=== PATIENT | male | born 1960 | race Caucasian/White ===

== ENCOUNTER 2016-12-23 20:20 | Inpatient (IN) | payer BC ==
[~2016-12-23] VITALS: Ht 185.4 cm; Wt 100.7 kg
--- NOTE | 2016-12-23 04:10 | NUR ---
PATIENT RESTING: Patient resting quietly. No acute distress noted. Vital signs within normal range. Addendum: 12/24/16 at 0421 by Nury Zurita RN WRONG ENTRY
[2016-12-23 20:25] VITALS: BP 140/79; PULSE 125; RESP 20; TEMP 100.4; O2SAT 94
--- NOTE | 2016-12-23 20:25 | NUR ---
Placed in room 3 . Placed on vehicle monitor technician, blood pressure machine and pulse oximeter. To gown for exam. Side rails up. Report given to Sandra DILLON.
[2016-12-23] MEDS ORDERED: IBUPROFEN 800 MG TABLET PO ONE (20:30)
[2016-12-23] MEDS ORDERED: NACL 0.9% 1,000 ML IV SCH (20:30)
--- NOTE | 2016-12-23 20:30 | NUR ---
Patient alert and oriented x 4. Came in the ER with with a complaint of having a hard time emptying bladder. Patient was not feeling well since yesterday and just slept. Patient began having elevated temperature of 103 degrees F at home around 1830 then went to the urgent care. MD at urgent sent patient here. Blood sugar 231 (Hx of DM). Temp at this time is 100.4. No acute distress or SOB noted. Denies nausea or vomiting. Will continue to monitor.
--- NOTE | 2016-12-23 20:32 | NUR ---
ER Dr. Aguirre at bedside examining patient.
--- NOTE | 2016-12-23 20:34 | NUR ---
# 20 gauge angiocath placed to right AC. Use of asceptic technique. Opsite placed over site. Blood return noted. Blood for lab drawn from site. Flushed with 10 cc of normal saline. No evidence of infiltration noted. Patient tolerated well.
[2016-12-23 20:53] LABS: HEMOGLOBIN 15.3 g/dL (14.0-18.0); MEAN CORPUSCULAR HEMOGLOBIN 30 pg (27-31); MEAN CORPUSCULAR HGB CONC 34 % (32-36); MEAN CORPUSCULAR VOLUME 90 fL (79.0-98.0); PLATELET COUNT (AUTO) 198 K/uL (130-430); RED BLOOD CELL COUNT(AUTO) 5.02 MIL/uL (4.2-6.2); RED CELL DISTRIBUTION WIDTH 12.8 % (9.0-15.0); WHITE BLOOD COUNT (AUTO) 28.3 K/uL (4.8-10.8)
[2016-12-23 21:03] LABS: CALCIUM 8.9 mg/dL (8.4-11.0); CREATININE 1.48 mg/dL (0.55-1.30); POTASSIUM 4.2 mmol/L (3.5-5.1)
[2016-12-23 21:12] LABS: TOTAL BILIRUBIN 0.8 mg/dL (0.0-1.0)
[2016-12-23 21:13] LABS: ALBUMIN 3.3 g/dL (3.4-4.8); TOTAL PROTEIN, SERUM 7.4 g/dL (6.4-8.3)
[2016-12-23] MEDS ORDERED: NACL 0.9% 1,000 ML IV ONE ×2 (21:15→22:15)
[2016-12-23 21:18] LABS: BILIRUBIN,URINE NEGATIVE (NEGATIVE); BLOOD, URINE 1+ (NEGATIVE); CLARITY/URINE SL CLOUDY (CLEAR); COLOR,URINE YELLOW (YELLOW); GLUCOSE,URINE 2+ (NEGATIVE); KETONES,URINE NEGATIVE (NEGATIVE); LEUKOCYTE ESTERASE ,URINE 1+ (NEGATIVE); NITRITE, URINE POSITIVE (NEGATIVE); PROTEIN URINE 1+ (NEGATIVE)
[2016-12-23 21:25] LABS: BACTERIA,URINE MANY /HPF (None Seen); MUCUS,URINE None Seen /LPF (None Seen); RBC,URINE NONE SEEN /HPF (0-3); WBC,URINE >100 /HPF (0-3)
[2016-12-23 21:33] LABS: ATYPICAL LYMPHOCYTES % 0 % (0-0); BAND % (MANUAL) 5 % (0-6); BASOPHILS % (MANUAL) 0 % (0-2); EOSINOPHILS % (MANUAL) 0 % (0-7); LYMPHOCYTES % (MANUAL) 7 % (20-46); MONOCYTES % (MANUAL) 10 % (0-11)
[2016-12-23] MEDS ORDERED: cefTRIAXone 1 GM IVPB PREMIX 50 ML IV ONE (22:15)
[2016-12-23] MEDS ORDERED: LIP40 PO (22:41)
[2016-12-23] MEDS ORDERED: GLU500 PO (22:41)
[2016-12-23] MEDS ORDERED: LOSA100T11 PO (22:41)
--- NOTE | 2016-12-23 23:17 | NUR ---
ADMISSION NOTE Received patient from ER via cora, received report from WILMA Flores. Patient admitted with diagnosis of Urosepsis. Patient oriented to hospital routine, call light, toileting and safety-patient verbalized understanding.
[2016-12-23 23:19] VITALS: BP 92/59; PULSE 88; RESP 20; TEMP 97; O2SAT 93
--- NOTE | 2016-12-23 23:20 | NUR ---
Patient will be admitted under the care of Dr. Bishop . Admitted to med-surg unit. Will go to room 107B. Summary report printed. Report given to WILMA Son.
--- NOTE | 2016-12-23 23:25 | NUR ---
ROUNDS PATIENT IN BED, AWAKE, ALERT, ORIENTED, DENIES ANY PAIN AND DISCOMFORT AT THIS TIME. ADMISSION ASSESSMENT DONE AND DOCUMENTED. SEE FLOWSHEET. ORIENTED PATIENT TO HIS ROOM, TV, PHONE AND CALL LIGHT. PLAN OF CARE DISCUSSED AND PATIENT VERBALIZED UNDERSTANDING. NEEDS ATTENDED TO. SAFETY AND FALL PRECAUTION MEASURES IN PLACED. CALL LIGHT PLACED WITHIN REACH.
[2016-12-24] MEDS ORDERED: PIPERACILLIN/TAZOBACTAM 3.375 GM/VIAL (ZOSYN) IV ONE (00:30)
[2016-12-24] MEDS: PIPERACILLIN/TAZO 3.375 GM in NS 50 ML IV SCH ×4 (00:37→17:15)
[2016-12-24] MEDS: NACL 0.9% 1,000 ML IV SCH ×2 (00:39→09:00)
--- NOTE | 2016-12-24 02:15 | NUR ---
PATIENT RESTING: Patient resting quietly. No acute distress noted. Vital signs within normal range.
[2016-12-24 03:39] VITALS: BP 126/61; PULSE 89; RESP 18; TEMP 97.6; O2SAT 96
--- NOTE | 2016-12-24 04:00 | NUR ---
NOTES PATIENT AWAKE, VITALS STABLE, LAB ORDER FOR INFLUENZA A&B ANTIGEN DONE AND SENT TO LAB. WILL CONTINUE TO MONITOR PATIENT.
[2016-12-24] MEDS: INSULIN REGULAR, HUMAN 100 UNITS/ML, 10 ML VIAL (novoLIN R) SUBCUT PRN ×4 (06:21→22:18)
--- NOTE | 2016-12-24 06:56 | NUR ---
CLOSING NOTES PATIENT STABLE, ALL NEEDS ATTENDED TO, ACCU CHECK DONE WITH BLOOD SUGAR OF 190 MG/DL. 2 UNITS REGULAR INSULIN GIVEN SQ PER SLIDING SCALE. CALL LIGHT PLACED WITH PATIENT.
--- NOTE | 2016-12-24 07:35 | NUR ---
rn notes: patient is aaox4. afebrile. vss stable. lungs bilaterally clear. abdomen soft and non distended. has iv access on the right forearm. with normal saline 100cc/hr infusing on well. bed in low position. call lights within reach. safety measures maintained. informed patient to call for assistance.
[2016-12-24 08:12] VITALS: BP 100/63; PULSE 83; RESP 16; TEMP 97.4; O2SAT 97
--- NOTE | 2016-12-24 09:53 | NUR ---
CALLED UROLOGY CONSULT TO DR CARCAMO, RE: URINARY RETENTION. SPOKE TO BENEDICTO AND LEFT GARY ON HIS CELL PHONE
[2016-12-24 10:00] VITALS: BP 100/68; PULSE 89; RESP 18; TEMP 97.4; O2SAT 97
[2016-12-24 10:25] LABS: HEMATOCRIT 38.1 % (36-54); HEMOGLOBIN 13.2 g/dL (14.0-18.0); MEAN CORPUSCULAR HEMOGLOBIN 31 pg (27-31); MEAN CORPUSCULAR HGB CONC 35 % (32-36); MEAN CORPUSCULAR VOLUME 90 fL (79.0-98.0); PLATELET COUNT (AUTO) 148 K/uL (130-430); RED BLOOD CELL COUNT(AUTO) 4.25 MIL/uL (4.2-6.2); RED CELL DISTRIBUTION WIDTH 12.9 % (9.0-15.0)
[2016-12-24 10:29] LABS: CREATININE 1.1 mg/dL (0.55-1.30); POTASSIUM 3.8 mmol/L (3.5-5.1)
--- NOTE | 2016-12-24 10:30 | NUR ---
iv access on the rt forearm was infiltrated. has difficult veins.
[2016-12-24 10:34] LABS: ALBUMIN 2.5 g/dL (3.4-4.8); TOTAL BILIRUBIN 0.4 mg/dL (0.0-1.0)
[2016-12-24 10:50] LABS: BAND % (MANUAL) 5 % (0-6); BASOPHILS % (MANUAL) 0 % (0-2); EOSINOPHILS % (MANUAL) 0 % (0-7); LYMPHOCYTES % (MANUAL) 3 % (20-46); MONOCYTES % (MANUAL) 7 % (0-11)
--- NOTE | 2016-12-24 11:11 | NUR ---
CALLED UROLOGY CONSULT TO DR. Carolina TAI, RE: URINARY RETENTION. SPOKE TO
--- NOTE | 2016-12-24 11:50 | NUR ---
Dr Crowe came and evaluate the patient. bladder scanner done. with urine residual 160 on the bladdder. informed of the gram negative rods on the blood culture.
[2016-12-24 12:03] VITALS: Ht 185.4 cm; Wt 100.7 kg
[2016-12-24 12:15] VITALS: BP 154/88; PULSE 102; RESP 17; TEMP 98.2; O2SAT 97
--- NOTE | 2016-12-24 12:20 | NUR ---
latest bs is 224mg/dl. coverage given at this time. no pain nor distress noted.
--- NOTE | 2016-12-24 12:40 | NUR ---
tries to insert iv access x 6. no veins available.
--- NOTE | 2016-12-24 13:30 | NUR ---
Dr Bishop ordered to have picc line insertion. consent signed.
--- NOTE | 2016-12-24 14:30 | NUR ---
picc line nurse Vaibhav came and able to have picc line on the left basilic area.
[2016-12-24 15:06] LABS: INR 1.2 (0.80-1.20)
--- NOTE | 2016-12-24 16:00 | NUR ---
offered urinal x 2.
[2016-12-24 16:07] VITALS: BP 139/76; PULSE 111; RESP 22; TEMP 98.9; O2SAT 97
[2016-12-24] MEDS: LEVOFLOXACIN 500 MG/D5W 100 ML IV SCH (17:10)
--- NOTE | 2016-12-24 17:36 | NUR ---
CALLED ATTENDING MD DR MAIN RE: SEVERE HEADACHE. SPOKE TO MARNIE
--- NOTE | 2016-12-24 18:00 | NUR ---
latest bs is 232 mg/dl. coverage given at this time.
--- NOTE | 2016-12-24 18:20 | NUR ---
Paged paged for Dr Bishop, dialed . s/w Alma, stated that Dr Sainz is on-call for Dr Bishop.
--- NOTE | 2016-12-24 18:30 | NUR ---
temperature is 101.5. ice packs given to the patiient to the head, neck and both axilla region and groin areas.
--- NOTE | 2016-12-24 18:40 | NUR ---
Dr abraham made ordered. lactic acid done. norco and tylenol for fever.
[2016-12-24] MEDS ORDERED: ACETAMINOPHEN 325 MG TABLET PO PRN (18:45)
[2016-12-24] MEDS ORDERED: HYDROcodone/ACETAMIN 5-325 MG TAB (NORCO/ VICODIN) PO PRN (18:45)
--- NOTE | 2016-12-24 19:00 | NUR ---
tylenol 2 tabs po given and norco i tablet given as ordered. made comfortable.
--- NOTE | 2016-12-24 19:15 | NUR ---
OPENING NOTES RECEIVED REPORT AT BEDSIDE FROM DAY SHIFT NURSE. PATIENT AGITATED AND PACING AROUND ROOM WITH JERKY MOVEMENTS. PATIENT SITTING ON BED. FALL PRECAUTIONS IN PLACE, CALL LIGHT WITHIN REACH. WILL CONTINUE TO MONITOR.
--- NOTE | 2016-12-24 19:49 | NUR ---
Paged paged for Dr Bishop, dialed . s/w Nhung, stated that Dr Sainz is on-call for Dr Bishop.
[2016-12-24] MEDS ORDERED: INSU10VI4 SUBCUT (19:53)
[2016-12-24 19:55] VITALS: BP 119/80; PULSE 98; RESP 20; TEMP 98.8; O2SAT 97
[2016-12-24] MEDS ORDERED: LORazepam 2 MG/ML VIAL IVP ONE (20:45)
--- NOTE | 2016-12-24 21:15 | NUR ---
ROUNDS PATIENT IS SLEEPING COMFORTABLY. VISIBLE RISE AND FALL OF CHEST NOTED. NO ACUTE SIGNS OR SYMPTOMS OF DISTRESS NOTED. IV FLUIDS RUNNING. ICE PACKS AT BEDSIDE, NO FEVER. AT BEDSIDE. URINAL AT BEDSIDE. BED IN LOWEST POSITION AND CALL LIGHT WITHIN REACH. WILL CONTINUE TO MONITOR.
[2016-12-24] MEDS: TEMAZEPAM 15 MG CAPSULE PO SCH (21:37)
--- NOTE | 2016-12-24 23:15 | NUR ---
ROUNDS PATIENT IS SLEEPING COMFORTABLY, VISIBLE RISE AND FALL OF CHEST NOTED. NO ACUTE SIGNS OR SYMPTOMS OF DISTRESS NOTED. IV FLUIDS RUNNING, NO FEVER, URINAL AT BEDSIDE. BED IN LOWEST POSITION AND CALL LIGHT WITHIN REACH. WILL CONTINUE TO MONITOR.
[2016-12-25 00:30] VITALS: BP 127/76; PULSE 85; RESP 16; TEMP 97.8; O2SAT 97
--- NOTE | 2016-12-25 00:33 | NUR ---
ROUNDS PATIENT AWAKE AND USING BATHROOM. NO SIGNS OR SYMPTOMS OF DISTRESS NOTED. WILL CONTINUE TO MONITOR.
[2016-12-25] MEDS: PIPERACILLIN/TAZO 3.375 GM in NS 50 ML IV SCH ×4 (00:39→17:15)
--- NOTE | 2016-12-25 02:30 | NUR ---
ROUNDS PATIENT IS SLEEPING WITH VISIBLE RISE AND FALL OF CHEST NOTED. NO ACUTE SIGNS OR SYMPTOMS OF DISTRESS NOTED. IV FLUIDS RUNNING, NO FEVER, URINAL AT BEDSIDE. BED IN LOWEST POSITION AND CALL LIGHT WITHIN REACH. WILL CONTINUE TO MONITOR.
[2016-12-25] MEDS: NACL 0.9% 1,000 ML IV SCH ×3 (04:11→15:20)
--- NOTE | 2016-12-25 04:14 | NUR ---
ROUNDS PATIENT SLEEPING COMFORTABLY. VISIBLE RISE AND FALL OF CHEST AND AUDIBLE SNORING. NO SIGNS OR SYMPTOMS OF DISTRESS NOTED. BED IN LOWEST POSITION, CALL LIGHT WITHIN REACH. WILL CONTINUE TO MONITOR.
[2016-12-25 04:19] VITALS: BP 130/81; PULSE 70; RESP 18; TEMP 98.9; O2SAT 97
--- NOTE | 2016-12-25 05:00 | NUR ---
Consult Called Reason for consultation: Sepsis Was consult called: Yes Person who was notified: Arpyl Consulting Physician: Annika Mc MD Unit Secretary Order by: Kenia Bishop MD
[2016-12-25] MEDS: INSULIN REGULAR, HUMAN 100 UNITS/ML, 10 ML VIAL (novoLIN R) SUBCUT PRN ×3 (06:11→22:01)
--- NOTE | 2016-12-25 06:30 | NUR ---
CLOSING NOTES WILL ENDORSE CARE TO DAY SHIFT NURSE. PATIENT IS SLEEPING COMFORTABLY. VISIBLE RISE AND FALL OF THE CHEST IS NOTED. NO SIGNS OR SYMPTOMS OF DISTRESS NOTED. FALL PRECAUTIONS IN PLACE.
--- NOTE | 2016-12-25 08:57 | NUR ---
Nutrition Update Stephen Scale 18 noted. Pt admitted for urosepsis. Diet: [facility] BMI: 29.3 kg/m2 RD to follow per nutrition care standards.
--- NOTE | 2016-12-25 09:17 | NUR ---
Rounds to patient. Sleeping at this time.
--- NOTE | 2016-12-25 10:48 | NUR ---
Patient rounds and housekeeping present. Patient right side lying and resting with television on.
--- NOTE | 2016-12-25 11:08 | NUR ---
Check of blood sugar for patient request refused at this time. Refuses vital signs. Notified will give antibiotics at 12 and 2pm. Verbalizes understanding.
--- NOTE | 2016-12-25 12:05 | NUR ---
IV antibiotic up at this time. Patient quietly left side lying.
[2016-12-25 12:25] VITALS: BP 141/88; PULSE 89; RESP 17; TEMP 98.6; O2SAT 94
[2016-12-25] MEDS: LEVOFLOXACIN 500 MG/D5W 100 ML IV SCH (13:53)
--- NOTE | 2016-12-25 13:54 | NUR ---
Rounds to put up new antibiotic. Patient up to restroom. IV maching placed back to battery as it was low.
--- NOTE | 2016-12-25 15:39 | NUR ---
Provided patient a new urinal. Patient IVF bag change. Given two glasses one with extra ice for a drink patient has at bedside.
[2016-12-25 16:00] VITALS: BP 139/82; PULSE 82; RESP 17; TEMP 98.4; O2SAT 96
--- NOTE | 2016-12-25 17:59 | NUR ---
IV antibiotics up for patient. Accucheck within 200's for patient current range. Urinal emptied for 1000mL.
[2016-12-25 20:00] VITALS: BP 141/91; PULSE 88; RESP 18; TEMP 98.7; O2SAT 97
[2016-12-25 20:30] VITALS: BP 141/91; PULSE 88; RESP 18; TEMP 98.7; O2SAT 97
[2016-12-25] MEDS: TEMAZEPAM 15 MG CAPSULE PO SCH (21:14)
--- NOTE | 2016-12-25 21:17 | NUR ---
Medications Requested sleeping medications. Restoril given as ordered.
--- NOTE | 2016-12-25 22:05 | NUR ---
blood sugar Fingerstick checked = 285 mg/dL. No s/s of hypo/hyperglycemia. 6 units regular insulin given as ordered for coverage.
--- NOTE | 2016-12-25 23:15 | NUR ---
Rounds Sleeping quietly, no apparent distress. Easily aroused. Call light within reach.
[2016-12-26 00:48] VITALS: BP 138/82; PULSE 86; RESP 20; TEMP 99.2; O2SAT 97
[2016-12-26] MEDS: PIPERACILLIN/TAZO 3.375 GM in NS 50 ML IV SCH ×5 (00:56→23:56)
[2016-12-26] MEDS: NACL 0.9% 1,000 ML IV SCH ×3 (00:56→21:46)
--- NOTE | 2016-12-26 03:13 | NUR ---
Rounds Sleeping quietly, no apparent distress. Easily aroused. No c/o pain or discomfort. Call light within reach.
[2016-12-26 05:48] VITALS: BP 132/68; PULSE 75; RESP 16; TEMP 99; O2SAT 96
[2016-12-26] MEDS: INSULIN REGULAR, HUMAN 100 UNITS/ML, 10 ML VIAL (novoLIN R) SUBCUT PRN ×4 (06:55→22:14)
--- NOTE | 2016-12-26 07:00 | NUR ---
Closing note Sleeping quietly, easily aroused. No c/o pain or discomfort. All needs attended to. Call light within reach. Endorsed care to WILMA Garza via SBAR method.
[2016-12-26 07:01] LABS: BASOPHILS % (AUTO) 0.4 % (0.0-2.0); EOSINOPHILS # (AUTO) 0.1 K/uL (0.0-0.4); EOSINOPHILS % (AUTO) 0.9 % (0.0-4.0); HEMATOCRIT 39.6 % (36-54); HEMOGLOBIN 13.4 g/dL (14.0-18.0); LYMPHOCYTES # (AUTO) 0.8 K/uL (1.0-5.5); LYMPHOCYTES % (AUTO) 7.6 % (20.5-51.5); MEAN CORPUSCULAR HEMOGLOBIN 30 pg (27-31); MEAN CORPUSCULAR HGB CONC 34 % (32-36); MEAN CORPUSCULAR VOLUME 88 fL (79.0-98.0); MONOCYTES # (AUTO) 0.9 K/uL (0.0-1.0); MONOCYTES % (AUTO) 9.4 % (1.7-9.3); NEUTROPHILS # (AUTO) 8.2 K/uL (1.8-7.7); NEUTROPHILS % (AUTO) 81.7 % (40.0-70.0); PLATELET COUNT (AUTO) 186 K/uL (130-430); RED BLOOD CELL COUNT(AUTO) 4.49 MIL/uL (4.2-6.2); RED CELL DISTRIBUTION WIDTH 13.1 % (9.0-15.0)
[2016-12-26 07:25] LABS: ALBUMIN 2.5 g/dL (3.4-4.8); CALCIUM 8.4 mg/dL (8.4-11.0); CREATININE 0.98 mg/dL (0.55-1.30); POTASSIUM 3.7 mmol/L (3.5-5.1); TOTAL BILIRUBIN 0.4 mg/dL (0.0-1.0); TOTAL PROTEIN, SERUM 6.3 g/dL (6.4-8.3)
[2016-12-26 08:00] VITALS: BP 139/88; PULSE 82; RESP 16; TEMP 97.6; O2SAT 95
--- NOTE | 2016-12-26 08:00 | NUR ---
NOTE PT RESTING IN BED. WILL NOT ANSWER QUESTIONS AT THIS TIME, JUST TURNS HIS HEAD AND GOES BACK TO SLEEP. NO SOB/RESP DISTRESS OR PAIN/DISCOMFORT NOTED AT THIS TIME. PICC IN LEFT UPPER ARM INTACT AND PATENT AT THIS TIME. CALL LIGHT WITHIN REACH. PT USES URINAL TO VOID AND STAFF EMPTIES IT FOR HIM AT THIS TIME.
--- NOTE | 2016-12-26 12:00 | NUR ---
NOTE PT HAS 3 FRIENDS AT BEDSIDE VISITING. PT AMBULATED TO RESTROOM TO VOID AND NO NEEDS NOTED. PT AMBULATED TO RESTROOM WITH STEADY GAIT. NO NEEDS NOTED AT THIS TIME. CALL LIGHT WITHIN REACH. IVF'S INFUSING WELL AT THIS TIME. NO NEEDS NOTED. CALL LIGHT WITHIN REACH.
[2016-12-26 12:17] VITALS: BP 138/82; PULSE 73; RESP 18; TEMP 98; O2SAT 96
[2016-12-26] MEDS: LEVOFLOXACIN 500 MG/D5W 100 ML IV SCH (15:20)
[2016-12-26 15:59] VITALS: BP 136/80; PULSE 76; RESP 18; TEMP 97.9; O2SAT 100
--- NOTE | 2016-12-26 16:00 | NUR ---
NOTE PT SITTING IN BS CHAIR EATING SANDWICH THAT HIS BROUGHT IN FOR HIM. PT DENIES ANY SOB/RESP DISTRESS OR PAIN/DISCOMFORT AT THIS TIME. NO NEEDS NOTED. PT STABLE AT THIS TIME. CALL LIGHT WITHIN REACH.
--- NOTE | 2016-12-26 18:15 | NUR ---
NOTE PT ATE HIS DINNER AND THEN FELL BACK TO SLEEP. NO SOB/RESP DISTRESS OR PAIN/DISCOMFORT NOTED AT THIS TIME. LEFT UPPER ARM PICC INTACT AND PATENT AT THIS TIME. NO NEEDS NOTED, PT WAS CHECKED ON Q1' AND PRN ALL SHIFT. PT WAS MAINTAINED WITH SAFETY PRECAUTIONS ALL SHIFT. CALL LIGHT WITHIN REACH.
[2016-12-26 19:30] VITALS: BP 132/83; PULSE 86; RESP 17; TEMP 97.7; O2SAT 95
--- NOTE | 2016-12-26 20:00 | NUR ---
Initial note A/O x 3, no SOB, no chest pain, denied pain. Patient was eating dinner with at this time. Skin warm to touch, PICC line at L upper arm, patent, good blood return, no s/s of infection or infiltration. Continued NS @ 100 ml/hr. Clear lung sounds and active bowel sounds. No edema noted. +2 radial and pedal pulses, BRP. Patient stated some dysuria. SN instructed patient to increase fluids intake. Call light within reach, will continue to monitor patient.
[2016-12-26] MEDS: TEMAZEPAM 15 MG CAPSULE PO SCH (21:45)
--- NOTE | 2016-12-26 22:00 | NUR ---
Rounds Sleeping/resting. No SOB, no chest pain, denied pain. Blood sugar 330, 8 units Novolin R given. Patient tolerated well. No s/s of hyper or hypoglycemia. Continued NS @ 100 ml/hr via PICC line. Patient went back to sleep. Call light within reach, will continue to monitor patient.
[2016-12-27 00:07] VITALS: BP 138/82; PULSE 78; RESP 20; TEMP 98.9; O2SAT 97
--- NOTE | 2016-12-27 00:15 | NUR ---
Rounds Sleeping. No SOB, no chest pain, no grimacing. No s/s of hyper or hypoglycemia. Continued NS @ 100 ml/hr via PICC line. Zosyn IV given. Call light within reach, will continue to monitor patient.
--- NOTE | 2016-12-27 02:30 | NUR ---
Rounds Sleeping. No SOB, no chest pain, no grimacing. No s/s of hyper or hypoglycemia. Continued NS @ 100 ml/hr via PICC line. Call light within reach, will continue to monitor patient.
[2016-12-27 04:21] VITALS: BP 138/62; PULSE 90; RESP 20; TEMP 98.6; O2SAT 98
[2016-12-27] MEDS: PIPERACILLIN/TAZO 3.375 GM in NS 50 ML IV SCH (05:02)
[2016-12-27] MEDS: NACL 0.9% 1,000 ML IV SCH (06:05)
[2016-12-27] MEDS: INSULIN REGULAR, HUMAN 100 UNITS/ML, 10 ML VIAL (novoLIN R) SUBCUT PRN (06:34)
--- NOTE | 2016-12-27 06:44 | NUR ---
Closing note Resting in bed. No SOB, no chest pain, denied pain. Blood sugar 295, 6 units of Novolin R given, no s/s of hyper or hypoglycemia. Continued NS @ 100 ml/hr via PICC line. Call light within reach, will give report to incoming nurse.
--- NOTE | 2016-12-27 07:20 | NUR ---
am rounds: patient on the bed. awake,alert and oriented x4. ivf on going at left upper arm piccline.no distress. report given by gisela merino nurse at bedside. continue to monitor.
[2016-12-27 08:55] VITALS: BP 149/98; PULSE 66; RESP 19; TEMP 97.2; O2SAT 96
--- NOTE | 2016-12-27 09:05 | NUR ---
MD ROUNDS: PATIENT SEEN BY DR MAIN AND WITH ORDERS DC HOME AND F/U WITH UROLOGIST IN 1 WEEK.PATIENT STATED HE ALREADY HAD A APPT WITH DR TAI,S OFFICE.
[2016-12-27 10:42] VITALS: BP 140/90; PULSE 64; RESP 19; TEMP 97.9; O2SAT 97
[2016-12-27 11:16] VITALS: BP 140/90; PULSE 64; RESP 19; TEMP 97.9; O2SAT 97
--- NOTE | 2016-12-27 11:35 | NUR ---
DC NOTES; TRANSITIONAL CARE DOCUMENTS AND PRESCRIPTIONS GIVEN TO PATIENT. PICCLINE REMOVED,DRY DRESSING APPLIED,NO ACTIVE BLEEDING NOTED.FAXED PRESCRIPTIONS TO [facility] AT [address],CONFIRMED RECEIVED ATTACHED TO CHART.INSTRUCTED PATIENT TO WIND OPERATIONS SUPERVISOR THE MEDS C/O [facility] PER REQUEST AND PATIENT VERBALIZED UNDERSTANDING. WALK PT TO [facility]OM[facility] HOME BY HIS SUDHAKAR IN STABLE CONDITION.
--- NOTE | 2016-12-27 12:29 | NUR ---
INDIRECT SALES REPRESENTATIVE called and spoke with HCP Drivability Technician, Karina ([phone]), to inform her regarding pt's discharge order.
== END 2016-12-27 11:35 | disposition home or self-care (01) | DRG 871 ==
LOC: SED 20:20 → SMU 22:57
PROVIDERS: ADMIT Internal Medicine Hospice and Palliative Medicine; ATTEND Internal Medicine Hospice and Palliative Medicine
PROC: 02HV33Z Insertion of Infusion Device into Superior Vena Cava, Percutaneous Approach (ICD-10-PCS; principal; 2016-12-24)
PROC: B548ZZA Ultrasonography of Superior Vena Cava, Guidance (ICD-10-PCS; 2016-12-24)
DX: A41.51 Sepsis due to Escherichia coli [E. coli] (principal); N17.0 Acute kidney failure with tubular necrosis; N10 Acute pyelonephritis; E44.1 Mild protein-calorie malnutrition; I10 Essential (primary) hypertension; E11.9 Type 2 diabetes mellitus without complications; B96.20 Unspecified Escherichia coli [E. coli] as the cause of diseases classified elsewhere; N40.0 Benign prostatic hyperplasia without lower urinary tract symptoms; Z79.899 Other long term (current) drug therapy; Z68.29 Body mass index [BMI] 29.0-29.9, adult
CPT/HCPCS: 36415; 71010; 76770; 80053; 81000-TC; 82962; 83605; 84484; 85007; 85025; 85027; 85610-TC; 85730-TC; 86710; 87040-TC; 87086; 87186-TC; 93005; 99285; C1751; J0696; J1815; J1956; J2060; J2543; J7030

== ENCOUNTER 2019-09-11 15:51 | Inpatient (IN) | payer BC ==
[~2019-09-11] VITALS: Ht 188 cm; Wt 103.2 kg
[2019-09-11] VITALS (8 sets, daily range): BP systolic 124–154
[~2019-09-11 15:51] MED LIST: GLU500 PO; INSU10VI4 SUBCUT; LIP40 PO; LOSA100T3 PO
--- NOTE | 2019-09-11 15:53 | NUR ---
Patient to ER bed 08 to gown for evaluation. Side rails up.
--- NOTE | 2019-09-11 16:00 | NUR ---
Patient brought in ambulatory from home complaining of shortness of breath intermittently x 7 months with worsening bilateral LE edema x 3 days. Patient is pacing room and agitated at this time. Denies any pain. Daugther at bedside. Patient able to speak full sentences. No other complaints/injuries per patient or as noted. will continue to monitor.
--- NOTE | 2019-09-11 16:13 | NUR ---
ER Dr. Chang at bedside examining patient.
--- NOTE | 2019-09-11 16:20 | NUR ---
# 18 gauge angiocath placed to LAC. Use of asceptic technique. Opsite placed over site. Blood return noted. Blood and blood cultures for lab drawn from site. Flushed with 10 cc of normal saline. No evidence of infiltration noted. Patient tolerated well.
[2019-09-11 16:45] LABS: BASOPHILS # (AUTO) 0.1 K/uL (0.0-0.2); BASOPHILS % (AUTO) 1.1 % (0.0-2.0); EOSINOPHILS # (AUTO) 0.4 K/uL (0.0-0.4); EOSINOPHILS % (AUTO) 4.1 % (0.0-4.0); HEMATOCRIT 45.5 % (36-54); HEMOGLOBIN 15.1 g/dL (14.0-18.0); LYMPHOCYTES # (AUTO) 1.5 K/uL (1.0-5.5); LYMPHOCYTES % (AUTO) 16.4 % (20.5-51.5); MEAN CORPUSCULAR HEMOGLOBIN 30 pg (27-31); MEAN CORPUSCULAR HGB CONC 33 % (32-36); MEAN CORPUSCULAR VOLUME 91 fL (79.0-98.0); MONOCYTES # (AUTO) 1.1 K/uL (0.0-1.0); MONOCYTES % (AUTO) 11.6 % (1.7-9.3); NEUTROPHILS # (AUTO) 6.2 K/uL (1.8-7.7); NEUTROPHILS % (AUTO) 66.8 % (40.0-70.0); PLATELET COUNT (AUTO) 277 K/uL (130-430); RED BLOOD CELL COUNT(AUTO) 5.02 MIL/uL (4.2-6.2); RED CELL DISTRIBUTION WIDTH 13.6 % (9.0-15.0); WHITE BLOOD COUNT (AUTO) 9.3 K/uL (4.8-10.8)
[2019-09-11 17:01] LABS: CREATININE 1.44 mg/dL (0.55-1.30); POTASSIUM 4.4 mmol/L (3.5-5.1)
[2019-09-11 17:07] LABS: ALBUMIN 3.3 g/dL (3.4-4.8); TOTAL BILIRUBIN 0.7 mg/dL (0.0-1.0)
--- NOTE | 2019-09-11 17:08 | NUR ---
Patient resting in [facility]. Lab results pending. Chest rise and fall noted. Will continue to monitor.
--- NOTE | 2019-09-11 17:32 | NUR ---
Patient's code status is full code paperwork completed and placed in chart.
--- NOTE | 2019-09-11 18:09 | NUR ---
Patient will be admitted to care of Dr. Bishop. Admitted to ICU unit. Will go to room 4. Belongings list completed. Complete and up to date summary report printed. SBAR report to be given at bedside with opportunity for questions.
[2019-09-11] MEDS ORDERED: *HEPARIN PER PHARMACY XX ONE (18:15)
[2019-09-11] MEDS ORDERED: METF1000 PO (18:20)
[2019-09-11] MEDS ORDERED: HYDR25TA4 PO (18:20)
[2019-09-11] MEDS ORDERED: IBUP-1969 PO (18:20)
[2019-09-11] MEDS ORDERED: AMOX500C2 PO (18:20)
--- NOTE | 2019-09-11 18:21 | NUR ---
Medication reconciliation completed with information provided by Patient's medication bottles. Any prior medication reconciliation on file was reviewed and corrected.
[2019-09-11 18:45] LABS: INR 1.1 (0.80-1.20); PROTHROMBIN TIME 10.9 SECS (9.5-12.5)
--- NOTE | 2019-09-11 18:48 | NUR ---
ICU Opening Note Received bedside report from TRUCK BODY BUILDER APPRENTICE for continuation of care. Received patient lethargic in bed, arousable to voice, able to speak full sentences, and follows commands. Patient denies any SOB or pain. Patient placed on continuous rn house supervisor. IV site LAC #18 patent, no signs of infiltration. No signs or symptoms of acute distress noted. Bed locked in lowest position, bed alarm on, and call light within reach. Fall and safety precautions in place.
--- NOTE | 2019-09-11 19:25 | NUR ---
Endorsement Endorsed bedside report to oncoming RN using SBAR approach for continuation of care.
--- NOTE | 2019-09-11 19:32 | NUR ---
Opening Note Pt in bed, AAO, but groggy. Pt at bedside, says Pt is just tired, and has had a long couple days. 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 Pt ST on the monitor, on RA. No s/s of distress noted. Pt has LAC 18g SL. Site is C/D/I, no s/s of infiltration noted. Bed locked in lowest position, safety precautions in place, and call light in reach. Will continue to monitor.
--- NOTE | 2019-09-11 19:45 | NUR ---
Spoke to Lux from radiology, Pt to be brought down for VQ scan around 2100.
[2019-09-11] MEDS ORDERED: HEPARIN SODIUM,PORCINE 5000 UNITS/ML VIAL IVP ONE (19:51)
[2019-09-11] MEDS ORDERED: HEPARIN 25,000 UNITS in 250 ML PREMIX IV PRN (20:00)
--- NOTE | 2019-09-11 20:46 | NUR ---
VQ Scan Pt in radiology dept, for VQ scan. RN accompanied. Pt hooked up to tele monitor. No s/s of distress noted. Will continue to monitor.
[2019-09-11] MEDS ORDERED: FUROSEMIDE 20 MG/2 ML VIAL IVP SCH (21:00)
--- NOTE | 2019-09-11 21:21 | NUR ---
Pt in process of having VQ scan. Pt tolerating well. VSS. NO distress noted. Will continue to monitor.
--- NOTE | 2019-09-11 21:35 | NUR ---
Pt back to ICU from Radiology. Tolerated procedure well. Hooked back up to monitor. VSS. Will continue to monitor. present at bedside.
--- NOTE | 2019-09-11 22:56 | NUR ---
PAGED-DR. LORA DIRECTOR OF PROCUREMENT [phone] Spoke with Chrissy
--- NOTE | 2019-09-11 23:05 | NUR ---
MD Called Spoke with Dr. Sandoval regarding Pt status and resulted V/Q scan. New orders received. Will carry out as ordered.
[2019-09-11] MEDS ORDERED: ZOLPIDEM TARTRATE 5 MG TABLET PO ONE (23:15)
--- NOTE | 2019-09-11 23:35 | NUR ---
Dr. Sandoval at bedside examining Pt.
[2019-09-11] MEDS ORDERED: D5W 1,000 ML IV PRN (23:38)
[2019-09-11] MEDS ORDERED: ACETAMINOPHEN 650 MG/20.3 ML UDC PO PRN (23:45)
[2019-09-11] MEDS ORDERED: GLUCOSE 15 GM GEL (in 37.5 GM TUBE) PO PRN (23:45)
[2019-09-11] MEDS ORDERED: DEXTROSE 50% JECT 50 ML DISP.SYRIN IVP PRN (23:45)
--- NOTE | 2019-09-12 00:40 | NUR ---
Transfer Pt transferred to room Telemetry 111B via wheelchair. Pt tolerated well, no s/s of distress noted. Belongings sent with Pt. Report given to admission nurse at bedside via SBAR approach.
[2019-09-12] MEDS ORDERED: HEPARIN SODIUM,PORCINE 2000 UNITS/0.4 ML BOLUS IVP PRN (01:00)
[2019-09-12] MEDS ORDERED: ENOXAPARIN SODIUM 120 MG/0.8 ML SYRINGE SUBCUT SCH (01:00)
[2019-09-12] MEDS ORDERED: HEPARIN SODIUM,PORCINE 3000 UNITS/0.6 ML BOLUS IVP PRN (01:00)
[2019-09-12 01:15] VITALS: BP_SYST 113
--- NOTE | 2019-09-12 01:15 | NUR ---
ASSUMED CARE FROM ADMITTING NURSE GARY DILLON. TRANSFERRED FROM ICU VIA BED AND PLACED IN ROOM 111-B AT 0040. RECEIVED ALERT,ORIENTED. AFEBRILE, NOT IN ACUTE DISTRESS. NO PAIN NOTED BUT COMPLAINED OF INABILITY TO SLEEP AND REQUESTED FOR SLEEP MEDICATION. BILATERAL LEG NOTED TO HAVE +2 EDEMA. SAO2=99% ON ROOM AIR. SR/ST AT 90'S TO LOW 100'S ON THE MONITOR. VS STABLE, WILL CONTINUE TO MONITOR. NEEDS ATTENDED.
[2019-09-12] MEDS: ZOLPIDEM TARTRATE 5 MG TABLET PO PRN ×2 (01:29→23:00)
--- NOTE | 2019-09-12 01:31 | NUR ---
AMBIEN 5 MG PO FOR SLEEP AND LOVENOX 110 MG SQ X 1 GIVEN ORDERED. PT. ADVISED TO GET BACK TO BED.
--- NOTE | 2019-09-12 03:30 | NUR ---
PT. NOTED TO BE SLEEPING ON THE CHAIR. PT.HELPED BACK TO BED, TURNED BED ALARM ON AND PUT 2 SIDE RAILS UP.
--- NOTE | 2019-09-12 03:59 | NUR ---
CONSULT PAGED-CARDIOLOGY MORNING CONSULT TO DR. SWIFT FOR CHF [phone] SPOKE WITH PRIYANKA
--- NOTE | 2019-09-12 04:50 | NUR ---
SLEEPING SOUNDLY, NOT IN ACUTE DISTRESS. REMAINS STABLE AND PAIN FREE. WILL CONTINUE TO MONITOR.
--- NOTE | 2019-09-12 06:40 | NUR ---
FINGERSTICK BLOOD SUGAR OGCLH=[id number]. NO INSULIN COVERAGE NEEDED.
[2019-09-12 07:11] LABS: BASOPHILS # (AUTO) 0.1 K/uL (0.0-0.2); BASOPHILS % (AUTO) 1.2 % (0.0-2.0); EOSINOPHILS # (AUTO) 0.4 K/uL (0.0-0.4); EOSINOPHILS % (AUTO) 5.7 % (0.0-4.0); HEMATOCRIT 42.2 % (36-54); HEMOGLOBIN 14.1 g/dL (14.0-18.0); LYMPHOCYTES # (AUTO) 1.5 K/uL (1.0-5.5); MEAN CORPUSCULAR HEMOGLOBIN 30 pg (27-31); MEAN CORPUSCULAR HGB CONC 34 % (32-36); MEAN CORPUSCULAR VOLUME 91 fL (79.0-98.0); MONOCYTES # (AUTO) 0.9 K/uL (0.0-1.0); MONOCYTES % (AUTO) 12.5 % (1.7-9.3); NEUTROPHILS # (AUTO) 4.4 K/uL (1.8-7.7); NEUTROPHILS % (AUTO) 59.6 % (40.0-70.0); PLATELET COUNT (AUTO) 248 K/uL (130-430); RED BLOOD CELL COUNT(AUTO) 4.66 MIL/uL (4.2-6.2); RED CELL DISTRIBUTION WIDTH 13.3 % (9.0-15.0); WHITE BLOOD COUNT (AUTO) 7.3 K/uL (4.8-10.8)
--- NOTE | 2019-09-12 07:40 | NUR ---
ENDORSED CARE NOAM RN STABLE.
[2019-09-12 07:46] LABS: CALCIUM 7.7 mg/dL (8.4-11.0); CREATININE 0.98 mg/dL (0.55-1.30); POTASSIUM 3.6 mmol/L (3.5-5.1); THYROID STIMULATING HORMONE 1.25 uIu/mL (0.36-3.74); TOTAL BILIRUBIN 0.7 mg/dL (0.0-1.0)
--- NOTE | 2019-09-12 08:43 | NUR ---
Dr. Dallas rounds assessed patient, new orders noted, will carry out.
[2019-09-12 08:53] VITALS: BP_SYST 120
--- NOTE | 2019-09-12 08:54 | NUR ---
Opening note patient resting in chair at bedside, his is at bedside, abdominal ultrasound complete, assessment complete, educated the patient buckle and button maker light system and plan of care, including strict I&O's and fluid restriction, patient verbalized understanding, no other needs at this time, bed in lowest position, two side rails up, call light within reach, fall and aspiration precautions in place.
[2019-09-12] MEDS ORDERED: FUROSEMIDE 20 MG/2 ML VIAL IVP ONE (09:00)
[2019-09-12] MEDS: LOSARTAN POTASSIUM 50 MG TABLET (COZAAR) PO SCH ×2 (09:19→21:49)
--- NOTE | 2019-09-12 09:26 | NUR ---
Medication patient resting in chair at bedside, educated on medications uses and potential side effects, he verbalized understanding and tolerated well, IV line is patent and infusing well, continuing to monitor, bed in lowest position, two side rails up, call light within reach, fall and aspiration precautions in place.
[2019-09-12] MEDS ORDERED: CARVEDILOL 3.125 MG TABLET (COREG) PO ONE (09:45)
[2019-09-12] MEDS: ENOXAPARIN SODIUM 100 MG/ML SYRINGE SQ SCH ×2 (10:00→21:51)
[2019-09-12 11:23] VITALS: BP_SYST 133
[2019-09-12] MEDS: LORazepam 1 MG TABLET PO PRN (11:28)
[2019-09-12] MEDS: INSULIN REGULAR, HUMAN 100 UNITS/ML, 10 ML VIAL (humuLIN R) SUBCUT PRN ×2 (11:34→22:09)
--- NOTE | 2019-09-12 11:37 | NUR ---
RN rounds/Medication patient resting in chair at bedside, educated on PRN and new medications uses and potential side effects, he verbalized understanding and tolerated well, blood glucose checked and insulin coverage provided per MD orders, no other needs at this time, bed in lowest position, two side rails up, call light within reach, fall and aspiration precautions in place.
[2019-09-12 12:15] LABS: BARBITURATE, URINE NEGATIVE (NEG <=200); BENZODIAZEPINE, URINE NEGATIVE (NEG <=150); CANNABINOID, URINE NEGATIVE (NEG <=50); COCAINE, URINE NEGATIVE (NEG <=150); METHAMPHETAMINES SCREEN,URINE NEGATIVE (NEG <=500); OPIATE, URINE NEGATIVE (NEG <=100); PHENCYCLIDINE SCREEN,URINE NEGATIVE (NEG <=25); UR TRICYCLIC ANTIDEPRESSANTS NEGATIVE (NEG <=300); URINE AMPHETAMINE NEGATIVE (NEG <=500); URINE METHADONE NEGATIVE (NEG <=200); URINE OXYCODONE SCREEN NEGATIVE (NEG <=100); URINE PROPOXYPHENE SCREEN NEGATIVE (NEG <=300)
--- NOTE | 2019-09-12 13:26 | NUR ---
RN rounds patient resting in recliner chair, eyes closed, breathing is even and unlabored, no signs of distress, his family is at bedside, continuing to monitor, his family is at bedside, call light within reach of patient, bed in lowest position, fall and aspiration precautions in place.
--- NOTE | 2019-09-12 15:36 | NUR ---
RN rounds patient resting in recliner chair, eyes closed, breathing is even and unlabored, no signs of distress, his is at bedside, continuing to monitor, bed in lowest position, call light within patient reach, fall and aspiration precautions in place.
--- NOTE | 2019-09-12 17:15 | NUR ---
RN rounds/blood glucose patient resting in recliner chair, eyes closed, breathing is even and unlabored, no signs of distress, easy to wake, blood glucose checked, no insulin coverage per MD orders, continuing to monitor, call light within reach, fall and aspiration precautions in place.
--- NOTE | 2019-09-12 18:31 | NUR ---
Closing note patient resting in recliner chair, no signs of distress, all needs met, will endorse report to NOC shift nurse, call light within patient reach, fall and aspiration precautions in place.
[2019-09-12 19:00] VITALS: BP_SYST 113
--- NOTE | 2019-09-12 19:15 | NUR ---
change of shift.pt.presents quiescent affect;calm. @bedside.pt.presents chf hx;pt.to be weighed w/in the shift.pt.presents fluids restriction;1500ml/24hrs.pt.presents iv access:lt.antecubital;iv lock.pt.capable to ambulate w/out assistance.pt.to receive the administration;lasix;ivp;to monitor pt.apprised to urinate w/in the urinal;w/in the restroom:per the pt's requests.call light/telephone w/in the reach of the pt.
[2019-09-12 20:00] VITALS: BP_SYST 113
--- NOTE | 2019-09-12 20:00 | NUR ---
pt.assessed.v/s assessed;values w/in normal limits.no c/o pain,nausea.@bedside.pt.in conversation w/.i have apprised the pt.that i may provide snacks/beverages w/in the shift.pt.had requested snacks.i have provided the snacks.general status stable.respiratory status stable;unlabored.pt.capable to ambulate w/out assistance.call light/telephone w/in reach of the pt.
--- NOTE | 2019-09-12 20:30 | NUR ---
i have assessed the blood glucose;value;203mg/dl.iu have apprised the pt.of the blood glucose value.
--- NOTE | 2019-09-12 21:00 | NUR ---
2100p medications administered.the lasix;40mg ivp administered;pt.apprised that he may produce copious amounts of urine. the urinal x2 placed w/in restroom per the pt's requests;accommodate;facilitate location of the urinal. Addendum: 09/13/19 at 0427 by Js Aadn RN i have administered insulin;regular;4-units.
[2019-09-12] MEDS: FUROSEMIDE 20 MG/2 ML VIAL IVP SCH (21:48)
[2019-09-12] MEDS: CARVEDILOL 3.125 MG TABLET (COREG) PO SCH (21:49)
--- NOTE | 2019-09-12 22:00 | NUR ---
pt.assessed.pt.presents quiescent affect;calm,somnolent.pt.resting upon the chair;recliner.general status stable.respiratory status stable;unlabored.i have attended to the urinal;measured/cleaned.placed w/in the restroom.pt.capable to reposition self.call light/telephone w/in the reach of the pt.
--- NOTE | 2019-09-12 23:00 | NUR ---
pt.had requested medication;sleep.i have administered ambien;5mg po.i have attended to the urinal:measured/cleaned placed w/in the restroom.
[2019-09-13] VITALS: BP_SYST 115
--- NOTE | 2019-09-13 | NUR ---
pt.assessed.v/s assessed;values w/in normal limits.no c/o pain,nausea.no requests posited@this hour.i have attended to the urinal;measured/cleaned.placed w/in the restroom.general status stable.respiratory status stable;unlabored.pt.capable to reposition self.call light/telephone w/in the reach of the pt.
--- NOTE | 2019-09-13 01:00 | NUR ---
pt.assessed.i have attended to the urinal:measured/cleaned.urinal placed w/in the restroom.pt.presents quiescent affect;calm, somnolent.
--- NOTE | 2019-09-13 02:00 | NUR ---
pt.assessed.pt.presents quiescent affect;calm,somnolent.pt.resting upon the chair/recliner.i have attended to the urinal; measured/cleaned. placed w/in the restroom.general status stable.respiratory status stable;unlabored.pt.capable to reposition self.call light/ telephone w/in the reach of the pt.
--- NOTE | 2019-09-13 03:00 | NUR ---
i have attended to the urinal;measured/cleaned placed w/in the restroom.ptrst quiescent affect;calm,somnolent.
--- NOTE | 2019-09-13 04:00 | NUR ---
pt.assessed.pt.presents affect;calm,somnolent.pt.resting upon the chair;recliner.general status stable.respiratory status stable;unlabored. i have inspected then urinals;clean.w/in the restroom.pt.capable to reposition self.call light/telephone w/in the reach of the pt.
--- NOTE | 2019-09-13 06:30 | NUR ---
pt.assessed.pt.presents quiescent affect;calm,somnolent.i have weighed the pt;2/t chf hx;lasix administration. general status stable.respiratory status stable;unlabored.pt.capable to reposition self.i have assessed the blood glucose;value:136mg/dl. i have apprised the pt.of the value.no c/o pain,nausea.i have inspected the urinal x2 clean.call light/telephone w/in reach of the pt.
--- NOTE | 2019-09-13 07:15 | NUR ---
OPENING NOTE: Received SBAR report and plan of care from green plumber RN
[2019-09-13 08:00] VITALS: BP_SYST 120
--- NOTE | 2019-09-13 09:00 | NUR ---
RN ROUNDS: Patient awake, AOx4, verbal and ambulatory. is at bedside. Patient denies chest pain. Patient denies SOB, breathing is even and unlabored. No signs of distress noted.
[2019-09-13] MEDS: FUROSEMIDE 20 MG/2 ML VIAL IVP SCH ×2 (09:03→21:42)
[2019-09-13] MEDS: LOSARTAN POTASSIUM 50 MG TABLET (COZAAR) PO SCH ×2 (09:03→21:00)
[2019-09-13] MEDS: CARVEDILOL 3.125 MG TABLET (COREG) PO SCH ×2 (09:04→21:00)
[2019-09-13] MEDS: ENOXAPARIN SODIUM 100 MG/ML SYRINGE SQ SCH ×2 (09:06→21:50)
--- NOTE | 2019-09-13 11:00 | NUR ---
RN ROUNDS: Patient remains AOx4 with no signs of distress noted. Patient is playing cards with at bedside.
[2019-09-13 11:31] VITALS: BP_SYST 124
[2019-09-13 12:21] VITALS: BP_SYST 99
[2019-09-13] MEDS: INSULIN REGULAR, HUMAN 100 UNITS/ML, 10 ML VIAL (humuLIN R) SUBCUT PRN (12:23)
--- NOTE | 2019-09-13 13:00 | NUR ---
RN ROUNDS: Patient resting in chair next to bed. Lots of family in room visiting. Patient is chatting and showing no signs of distress or discomfort.
--- NOTE | 2019-09-13 15:00 | NUR ---
RN ROUNDS: Patient walking laps around nursing station, gait is strong and steady. Patient has lots of family in room visiting. Patient denies chest pain, denies SOB.
[2019-09-13 15:54] VITALS: BP_SYST 118
--- NOTE | 2019-09-13 17:00 | NUR ---
RN ROUNDS: Patient resting in chair at bedside with family visiting. Patient walks frequently making laps around nursing station, gait is strong and steady.
--- NOTE | 2019-09-13 19:20 | NUR ---
CLOSING NOTE: Bedside SBAR report given and plan of care endorsed to awake overnight counselor RN
--- NOTE | 2019-09-13 19:35 | NUR ---
Opening note Patient is awake, AO x4, he returned from a walk in the hallway; he is sittng on recliner at bedside. Presently no SOB or s/sx of distress. IV to LAC is SL. Updated board and reviewed plan of care. He asked if he can shower, I informed I would have to page the doctor for an order.
[2019-09-13 20:00] VITALS: BP_SYST 99
--- NOTE | 2019-09-13 20:50 | NUR ---
Dr. Thomas s/w Dr. Thomas and she said ok for patient to shower.
--- NOTE | 2019-09-13 21:30 | NUR ---
Shower Patient assisted to shower. He denied dizziness or weakness and has steadyl gait. IV site was secured and covered with plastic wrap and tape. I stood outside in hallway while patient showered. Upon shower completion he returned to the room.
--- NOTE | 2019-09-13 21:50 | NUR ---
Medications Patient was administered due medication Lasix, and held blood pressure medication Coreg and Losartan; B/P 107/77. Fingerstick blood glucose was done w/ result of 111 mg/dL; no coverage is due. Presently he is in no distress and is sitting in chair playing a board game with . Will continue to monitor.
[2019-09-13] MEDS: ZOLPIDEM TARTRATE 5 MG TABLET PO PRN (22:42)
--- NOTE | 2019-09-13 22:48 | NUR ---
Ambien Patient requesting sleeping pill; administered Ambien as ordered. Patient has been ambulating to restroom and voiding in urinal. He was advised to stay in bed and use urinal at bedside; he agreed. Provided urinal and placed in flowers on bed rail.
[2019-09-14 00:06] VITALS: BP_SYST 118
--- NOTE | 2019-09-14 00:40 | NUR ---
Awake / v/s Patient awake for void, VSS. Patient was going to walk in hallway and I reminded him it is not safe, for he took ambien. He went back to his room and chose to rest on recliner. Will continue to monitor.
--- NOTE | 2019-09-14 02:25 | NUR ---
Rounds Patient resting in bed, w/eyes closed. Nonlabored breathing, no s/sx of distress. Emptied urinal, call light w/in reach.
--- NOTE | 2019-09-14 04:15 | NUR ---
Rounds Patient resting, eyes closed, nonlabored breathing. Call light w/in reach.
--- NOTE | 2019-09-14 06:50 | NUR ---
CLOSING NOTE Patient is resting, no s/sx of distress. Fingerstick blood glucose test done w/ result of 115 mg/dL; no coverage due. IV is SL to LAC. Needs met throughout shift. Safety precautions in place and call light w/in reach. Will endorse care to incoming day shift nurse.
--- NOTE | 2019-09-14 07:30 | NUR ---
Opening note patient resting in bed at this time, A/ox4, no complaints of pain. IV patent, intact. No infiltration noted. On safety and aspiration precautions, HOB kept elevated, 3 side rails up, call light within reach. bed alarm on. Patient in stable condition. Will continue to monitor.
[2019-09-14 08:00] VITALS: BP_SYST 102
[2019-09-14] MEDS: CARVEDILOL 3.125 MG TABLET (COREG) PO SCH (09:00)
[2019-09-14] MEDS: LOSARTAN POTASSIUM 50 MG TABLET (COZAAR) PO SCH (09:00)
--- NOTE | 2019-09-14 09:00 | NUR ---
BP low/ BP medications BP medications held, lasix given as ordered. Dr. juanita baca MD to see patient. No other needs at this time.
[2019-09-14] MEDS: FUROSEMIDE 20 MG/2 ML VIAL IVP SCH (09:27)
[2019-09-14] MEDS: ENOXAPARIN SODIUM 100 MG/ML SYRINGE SQ SCH (09:30)
[2019-09-14] MEDS: LORazepam 1 MG TABLET PO PRN (10:53)
--- NOTE | 2019-09-14 11:24 | NUR ---
rounds patient requested Ativan. Given as ordered. no adverse side effects noted. patient in stable condition.
[2019-09-14] MEDS: INSULIN REGULAR, HUMAN 100 UNITS/ML, 10 ML VIAL (humuLIN R) SUBCUT PRN (11:40)
[2019-09-14 12:47] VITALS: BP_SYST 96
[2019-09-14] MEDS ORDERED: LOSA50TA3 PO (13:21)
[2019-09-14] MEDS ORDERED: COR3.125 PO (13:21)
[2019-09-14] MEDS ORDERED: FURO-149 PO (13:21)
--- NOTE | 2019-09-14 13:45 | NUR ---
Rounds patient resting in bed at this time, asleep. No other needs at this time. Patient in stable condition.
[2019-09-14 14:50] VITALS: BP_SYST 96
--- NOTE | 2019-09-14 15:00 | NUR ---
labs completed labs completed, called about patients discharge. Stated she will come after she completes her errands.
[2019-09-14 15:03] LABS: CALCIUM 7.5 mg/dL (8.4-11.0); CREATININE 1.27 mg/dL (0.55-1.30); POTASSIUM 3.6 mmol/L (3.5-5.1)
[2019-09-14 17:22] VITALS: BP_SYST 106
== END 2019-09-14 18:25 | disposition home or self-care (01) | DRG 291 ==
LOC: SED 15:51 → SIC 18:09 → STU 09-12 00:36
PROVIDERS: ADMIT Internal Medicine Hospice and Palliative Medicine; ATTEND Internal Medicine Hospice and Palliative Medicine
DX: I11.0 Hypertensive heart disease with heart failure (principal); I50.21 Acute systolic (congestive) heart failure; E11.9 Type 2 diabetes mellitus without complications; N40.0 Benign prostatic hyperplasia without lower urinary tract symptoms; I42.9 Cardiomyopathy, unspecified; I42.7 Cardiomyopathy due to drug and external agent; T43.625A Adverse effect of amphetamines, initial encounter; Y92.89 Other specified places as the place of occurrence of the external cause
CPT/HCPCS: 36415; 71045; 76700-TC; 78579; 78580-TC; 80048; 80053; 80307; 82550-TC; 82962; 83880; 84443-TC; 84484; 85025; 85379; 85610-TC; 85730-TC; 87081; 93005; 93306; 99285; A9539; A9540; G0378; J1644; J1650; J1815; J1940